=== PATIENT | male | born 1935 | race Caucasian/White ===

== ENCOUNTER → 2018-04-22 | Outpatient (CLI) | payer OTHER, BC ==
[~2018-04-22] MED LIST: ACETAMINOPHEN PO; ANALGESIC325 MG PO; DIOVAN320 MG PO; LASIX 20 MG TAB20 MG PO; NITROQUICK0.4 MG SL; PLAVIX 75 MG TA75 MG PO; POTASSIUM CHLO10 ME1 PO; PREVACID 24HR15 MG PO; PROCARDIA XL90 MG PO; PROSCAR 5MG TABL5 M1 PO; TEKTURNA300 MG PO; TOPROL PO; TRICOR48 MG PO; XANAX 0.5 MG0.5 M1 PO; ZOCOR 20 MG TAB20 M1 PO
--- NOTE | ~2018-04-22 | 2DMMODE ---
[facility] [place] [address] 2 D/M-MODE ECHOCARDIOGRAM Name: NEMO AUSTIN Room #: REG [facility]#: [id number] Admission: 04/22/18 Attend Phys: Jonah David, Discharge: Date of : 31 Date of Service: 04/22/18 1410 Report #: [id number] THIS REPORT FOR: //name// APPROVED REPORT Study performed: 04/22/2018 12:53:44 EXAM: Comprehensive 2D, Doppler, and color-flow Echocardiogram Patient Location: Out-Patient Status: routine BSA: 1.98 HR: 67 bpm BP: 140/70 mmHg Rhythm: NSR Other Information Study Quality: Adequate Indications Edema. Hx: CABG 2D Dimensions RVDd: 35.20 mm IVSd: 11.28 (7-11mm) LVOT Diam: 22.35 (18-24mm) LVDd: 56.07 mm PWd: 10.56 (7-11mm) Ascending Ao: 32.39 (22-36mm) LVDs: 36.90 (25-40mm) Aortic Root: 36.22 mm Volumes Left Atrial Volume (Systole) Single Plane 4CH: 61.74 mL Single Plane 2CH: 89.92 mL LA ESV Index: 41.00 mL/m2 Aortic Valve AoV Peak Jeffery.: 2.27 m/s AO Peak Gr.: 20.55 mmHg LVOT Max P.80 mmHg AO Mean Gr.: 10.39 mmHg AO V2 Mean: 1.54 m/s LVOT Max V: 1.20 m/s AO V2 VTI: 51.24 cm JOANNA Vmax: 2.08 cm2 Mitral Valve E/A Ratio: 0.8 [facility] [place] [address] 2 D/M-MODE ECHOCARDIOGRAM Name: NEMO AUSTIN Room #: [facility]#: [id number] Admission: 04/22/18 Attend Phys: Jonah David, Discharge: Date of : 31 Date of Service: 04/22/18 1410 Report #: [id number] MV Decel. Time: 190.18 ms MV E Max Jeffery.: 1.17 m/s MV A Jeffery.: 1.43 m/s MV PHT: 55.15 ms IVRT: 78.43 ms Pulmonary Valve PV Peak Jeffery.: 1.24 m/s PV Peak Gr.: 6.14 mmHg Pulmonary Vein P Vein S: 0.73 m/s P Vein D: 0.47 m/s P Vein S/D Ratio: 1.55 Tricuspid Valve TR Peak Jeffery.: 2.89 m/s RAP Estimate: 5.00 mmHg TR Peak Gr.: 33.33 mmHg PA Pressure: 38.00 mmHg Left Ventricle The left ventricle is normal size. There is normal LV segmental wall motion. Mild concentric left ventricular hypertrophy. Left ventricular systolic function is normal. LVEF is 55-60%. Mild diastolic dysfunction is present (impaired relaxation pattern). Right Ventricle The right ventricle is normal size. The right ventricular systolic function is normal. Atria Left atrium is dilated. The right atrium size is normal. Aortic Valve Aortic valve is calcified. No aortic regurgitation is present. There is no aortic valvular stenosis. Mitral Valve The mitral valve is normal in structure. Trace to mild mitral regurgitation. Tricuspid Valve The tricuspid valve is normal in structure. Mild tricuspid regurgitation. Estimated PAP is 35-40mmHg. Pulmonic Valve [facility] [address] [place] [address] 2 D/M-MODE ECHOCARDIOGRAM Name: NEMO AUSTIN Room #: REG [facility]#: [id number] Admission: 04/22/18 Attend Phys: Jonah David, Discharge: Date of : 31 Date of Service: 04/22/18 1410 Report #: [id number] Pulmonic valve is not well visualized. Trace pulmonic regurgitation. Great Vessels The aortic root is normal in size. The ascending aorta is normal in size. IVC is normal in size and collapses >50% with inspiration. Pericardium There is no pericardial effusion. <Conclusion> The left ventricle is normal size. Mild concentric left ventricular hypertrophy. Left ventricular systolic function is normal. Mild diastolic dysfunction is present (impaired relaxation pattern). The right ventricle is normal size. Left atrium is dilated. Aortic valve is calcified. There is no aortic valvular stenosis. Trace to mild mitral regurgitation. Mild tricuspid regurgitation. Estimated PAP is 35-40mmHg. <ELECTRONICALLY SIGNED> By: Lewis Valentin MD 04/22/18 1410 [id number] Lewis Valentin MD /INF
== END ==
LOC: CV 12:09 → HYPER 12:09
DX: R60.0 Localized edema (principal); R21 Rash and other nonspecific skin eruption; L30.9 Dermatitis, unspecified; E78.5 Hyperlipidemia, unspecified; I25.10 Atherosclerotic heart disease of native coronary artery without angina pectoris; I12.9 Hypertensive chronic kidney disease with stage 1 through stage 4 chronic kidney disease, or unspecified chronic kidney disease; N18.4 Chronic kidney disease, stage 4 (severe); G47.33 Obstructive sleep apnea (adult) (pediatric); K21.9 Gastro-esophageal reflux disease without esophagitis; Z86.73 Personal history of transient ischemic attack (TIA), and cerebral infarction without residual deficits; Z95.1 Presence of aortocoronary bypass graft

== ENCOUNTER → 2018-04-30 | Outpatient (CLI) | payer OTHER, BC | LOC: HYPER 07:06 | DX: S81.801D Unspecified open wound, right lower leg, subsequent encounter (principal); R60.0 Localized edema; R21 Rash and other nonspecific skin eruption; L30.9 Dermatitis, unspecified; E78.5 Hyperlipidemia, unspecified; I25.10 Atherosclerotic heart disease of native coronary artery without angina pectoris; I10 Essential (primary) hypertension; N18.4 Chronic kidney disease, stage 4 (severe); K21.9 Gastro-esophageal reflux disease without esophagitis; G47.33 Obstructive sleep apnea (adult) (pediatric); Z95.1 Presence of aortocoronary bypass graft; Z86.73 Personal history of transient ischemic attack (TIA), and cerebral infarction without residual deficits; X58.XXXD Exposure to other specified factors, subsequent encounter ==

== ENCOUNTER → 2018-05-09 | Outpatient (CLI) | payer OTHER, BC | LOC: HYPER 07:00 | DX: S81.801D Unspecified open wound, right lower leg, subsequent encounter (principal); S81.802D Unspecified open wound, left lower leg, subsequent encounter; R21 Rash and other nonspecific skin eruption; E78.5 Hyperlipidemia, unspecified; I12.9 Hypertensive chronic kidney disease with stage 1 through stage 4 chronic kidney disease, or unspecified chronic kidney disease; N18.4 Chronic kidney disease, stage 4 (severe); I25.10 Atherosclerotic heart disease of native coronary artery without angina pectoris; G45.9 Transient cerebral ischemic attack, unspecified; G47.33 Obstructive sleep apnea (adult) (pediatric); K21.9 Gastro-esophageal reflux disease without esophagitis; X58.XXXD Exposure to other specified factors, subsequent encounter ==

== ENCOUNTER 2018-11-14 05:16 | Inpatient (IN) | payer OTHER, BC ==
[2018-11-14] VITALS (7 sets, daily range): BP systolic 113–180; BP diastolic 42–89
[~2018-11-14] VITALS: Ht 162.6 cm; Wt 86.2 kg
[2018-11-14 05:55] LABS: EOSINOPHILS 3.4 % (0.0-3.0); HEMATOCRIT 30.3 % (42.0-52.0); HEMOGLOBIN 10.4 gm/dL (14.0-18.0); LYMPHOCYTES 25.6 % (24.0-44.0); MCH 33.4 pg (26.0-34.0); MCHC 34.2 g/dL (28.0-37.0); MCV 97.7 fL (80.0-100.0); MONOCYTES 9.6 % (1.0-8.0); PLATELET COUNT 202 thou/uL (150-400); POLYS 60.4 % (36.0-66.0); RDW 15.3 % (10.5-14.5); WBC 6.6 thou/uL (4.0-11.0)
[2018-11-14] MEDS ORDERED: LASIX 40 MG TAB40 M2 PO (06:00)
[2018-11-14] MEDS ORDERED: TYLENOL EXTRA500 MG PO (06:01)
[2018-11-14] MEDS ORDERED: IRON325 PO (06:02)
[2018-11-14] MEDS ORDERED: VITAMIN D2000 UNIT PO (06:02)
[2018-11-14 06:03] LABS: ANION GAP 9 mmol/L (7-16); BUN 61 mg/dL (7-18); CHLORIDE 107 mmol/L (98-107); CO2 27 mmol/L (21-32); CREATININE 2.6 mg/dL (0.7-1.3); GLUCOSE 110 mg/dL (74-106); POTASSIUM 4.5 mmol/L (3.5-5.1); SODIUM 143 mmol/L (136-145)
[2018-11-14] MEDS ORDERED: ALLOPURINOL 10100 M1 PO (06:04)
[2018-11-14] MEDS ORDERED: HYTRIN 1 MG CAP1 MG (06:04)
[2018-11-14] MEDS ORDERED: ASPIR 8181 MG PO (06:05)
[2018-11-14] MEDS ORDERED: NORVASC5 MG PO (06:06)
[2018-11-14] MEDS ORDERED: ZOCOR20 MG PO (06:06)
[2018-11-14 06:11] LABS: TROPONIN-I <0.06 ng/mL (<0.06)
[2018-11-14 08:02] LABS: CHOLESTEROL 108 mg/dL (<200); HDL CHOLESTEROL 44 mg/dL (>40); LDL CHOLESTEROL 54 mg/dL (<100); TC:HDL 2.5 Ratio (Not establshd); TRIGLYCERIDE 52 mg/dL (<150); VLDL 10 mg/dL (<40)
--- NOTE | 2018-11-14 09:04 | EKG ---
[place] [address] [facility] [employer] [place] [address] ELECTROCARDIOGRAM REPORT Name: MINERVA AUSTINRAZ Pichardo Room #: 354-P ADM IN M.R.#: [id number] ������������������ Admission: 11/14/18 ������������������ Attend Phys: Daniela Dasilva Discharge: ������������������ Date of : 31 Report #: [id number] ����������������������������������������������������������������� [id number] THIS REPORT FOR: //name// 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[employer]: CARLOS : 1935 Requested By: Zeynep Urena Order Number: [id number] MD: Tae Juarez Measurements Intervals [place] Rate: 45 P: 49 MT: 162 QRS: -26 QRSD: 100 T: 68 QT: 488 QTc: 423 Interpretive Statements Sinus bradycardia Borderline left axis deviation Compared to ECG 09/03/2009 07:02:55 Nonspecific T wave abnormality no longer present sinus bradycardia is now present Electronically Signed On 11-14-2018 9:04:22 CDT by Tae Juarez [email or web address] ��������������������������������������������� <ELECTRONICALLY SIGNED> ���������������������������������������� By: Tae Juarez MD, [facility] ��������������������������������������������� 11/14/18 0904 0535 0535 Tae Juarez MD, [facility] /EPI
--- NOTE | 2018-11-14 11:20 | 2DMMODE ---
[facility] [place] [address] 2 D/M-MODE ECHOCARDIOGRAM Name: NEMO AUSTIN Room #: 354-P ADM IN M.R.#: [id number] ������������� Admission: 11/14/18 ������������� Attend Phys: Daniela Ghotra Discharge: ��� ������������� ��� Date of : 31 Date of Service: 11/14/18 1120 �� Report #: [id number] �������� ��������������������������������������������[id number] THIS REPORT FOR: //name// APPROVED REPORT Study performed: 11/14/2018 10:13:21 EXAM: Comprehensive 2D, Doppler, and color-flow Echocardiogram Patient Location: Bedside Room #: 354 Status: routine BSA: 1.91 HR: 49 bpm BP: 180/89 mmHg Rhythm: Bradycardia Other Information Study Quality: Adequate Risk Factors: Cardiac Risk Factors: HTN, Hyperlipidemia Indications Chest Pain S/P CABG x4 (2000) 2D Dimensions IVSd: 11.74 (7-11mm) LVOT Diam: 22.00 (18-24mm) LVDd: 43.26 mm PWd: 13.22 (7-11mm) Ascending Ao: 29.71 (22-36mm) LVDs: 31.33 (25-40mm) Aortic Root: 33.84 mm LV Single Plane 4CH: 60.80 % LV Single Plane 2CH: 60.28 % Biplane EF: 61.0 % Volumes Left Atrial Volume (Systole) Single Plane 4CH: 60.12 mL Single Plane 2CH: 49.76 mL LA ESV Index: 31.00 mL/m2 Aortic Valve AoV Peak Jeffery.: 1.65 m/s AO Peak Gr.: 10.94 mmHg LVOT Max P.98 mmHg LVOT Max V: 1.00 m/s [facility] [place] [place] [address] 2 D/M-MODE ECHOCARDIOGRAM Name: NEMO AUSTIN Room #: 354-P [facility] IN [facility].#: [id number] ������������� Admission: 11/14/18 ������������� Attend Phys: Daniela Ghotra Discharge: ��� ������������� ��� Date of : 31 Date of Service: 11/14/18 1120 �� Report #: [id number] �������� ��������������������������������������������[id number] JOANNA Vmax: 2.24 cm2 Mitral Valve E/A Ratio: 0.8 MV Decel. Time: 409.00 ms MV E Max Jeffery.: 1.07 m/s MV A Jeffery.: 1.41 m/s MV PHT: 118.61 ms IVRT: 78.43 ms TDI E/Lateral E': 10.70 E/Medial E': 17.83 Medial E' Jeffery.: 0.06 m/s Lateral E' Jeffery.: 0.10 m/s Pulmonary Valve PV Peak Jeffery.: 1.10 m/s PV Peak Gr.: 4.86 mmHg NC End Vmax: 1.08 m/s Pulmonary Vein P Vein S: 1.00 m/s P Vein A: 0.26 m/s P Vein D: 0.45 m/s P Vein A Dur.: 120.0 msec P Vein S/D Ratio: 2.22 Tricuspid Valve TR Peak Jeffery.: 2.76 m/s TR Peak Gr.: 30.43 mmHg Left Ventricle The left ventricle is normal size. There is normal LV segmental wall motion. Mild concentric left ventricular hypertrophy. Left ventricular systolic function is normal. The left ventricular ejection fraction is within the normal range. LVEF is 60%. Mild diastolic dysfunction is present (impaired relaxation pattern). Right Ventricle The right ventricle is normal size. The right ventricular systolic function is normal. Atria Left atrium is mildly dilated. The right atrium size is normal. Aortic Valve Aortic valve is calcified. No aortic regurgitation is present. There [address] [place] [address] 2 D/M-MODE ECHOCARDIOGRAM Name: NEMO AUSTIN Marino Room #: 354-P [facility] IN [facility]#: [id number] ������������� Admission: 11/14/18 ������������� Attend Phys: Daniela Ghotra Discharge: ��� ������������� ��� Date of : 31 Date of Service: 11/14/18 1120 �� Report #: [id number] �������� ��������������������������������������������[id number] is no aortic valvular stenosis. Mitral Valve The mitral valve is normal in structure. Trace mitral regurgitation. No evidence of mitral valve stenosis. Tricuspid Valve The tricuspid valve is normal in structure. Trace tricuspid regurgitation. TR jet measures 30 mmHg. Pulmonic Valve The pulmonary valve is normal in structure. There is no pulmonic valvular regurgitation. Great Vessels The aortic root is normal in size. The ascending aorta is normal in size. IVC is not well visualized. Pericardium There is no pericardial effusion. <Conclusion> The left ventricle is normal size. Mild concentric left ventricular hypertrophy. Left ventricular systolic function is normal. Mild diastolic dysfunction is present (impaired relaxation pattern). The right ventricle is normal size. Left atrium is mildly dilated. The right atrium size is normal. Aortic valve is calcified. Trace mitral regurgitation. Trace tricuspid regurgitation. TR jet measures 30 mmHg. ��������������������������������������������� <ELECTRONICALLY SIGNED> ���������������������������������������� By: Lewis Valentin MD ��������������������������������������������� 11/14/18 1120 1120 112 Lewis Valentin MD /INF
--- NOTE | 2018-11-14 16:41 | NUR ---
0830 ADMISSION NOTE: PT ARRIVES TO FLOOR ALERT AND ORIENTED X4, NO CHEST PAIN AT THIS TIME, ALL BELONGINGS DOCUMENTED, AT BEDSIDE, ORDERS ACKNOWLEDGED AND NEW CONSULTS CALLED. EXPLAINED TO PT AND PLAN OF CARE AND GOALS OF CARE. NO NEW QUESTIONS AT THIS TIME.
--- NOTE | 2018-11-14 17:05 | NUR ---
NO CHEST PAIN THROUGOUT DAY, STRESS TEST COMPLETED, NO QUESTIONS ABOUT TESTING; RESULTS WERE REVIEWED WITH PT BY DR. VINES. PT ALERT AND ORIENTED X4, PLEASANT MOOD, VITAL SIGNS STABLE, PT HAS NO CONCERNS AT THIS TIME. WILL CONTINUE TO MONITOR.
[2018-11-14 19:20] LABS: PROT/CREAT RATIO 2.7; URINE CREATININE-RANDOM* 57.4 mg/dL; URINE PROTEIN-RANDOM* 156.1 mg/dL (<11.9)
--- NOTE | 2018-11-15 04:43 | NUR ---
ASSUMED CARE AT START OF SHIFT PT UP TO BATHROOM GAIT STEADY WITH STANDBY ASSIST, PT DENIES PAIN WITH ACTIVITY, RESIDENTIAL REMODELING SUBCONTRACTOR SHOWS NSR -SB WHILE SLEEPING, CELI CONITNUE WITH CURRENT PLAN OF CARE .
[2018-11-15 05:26] LABS: ABSOLUTE NEUTROPHILS 4.1 thou/uL (1.4-8.2); BASOPHILS 0.4 % (0.0-2.0); EOSINOPHILS 3.2 % (0.0-3.0); HEMATOCRIT 29.6 % (42.0-52.0); HEMOGLOBIN 9.9 gm/dL (14.0-18.0); LYMPHOCYTES 21.4 % (24.0-44.0); MCH 32.5 pg (26.0-34.0); MCHC 33.3 g/dL (28.0-37.0); MCV 97.6 fL (80.0-100.0); MONOCYTES 9.8 % (1.0-8.0); PLATELET COUNT 194 thou/uL (150-400); POLYS 65.2 % (36.0-66.0); RBC 3.03 mil/uL (4.50-6.00); RDW 15.2 % (10.5-14.5); WBC 6.3 thou/uL (4.0-11.0)
[2018-11-15 05:41] LABS: ALBUMIN 2.8 g/dL (3.4-5.0); CALCIUM 8.4 mg/dL (8.5-10.1); CREATININE 2.3 mg/dL (0.7-1.3); MAGNESIUM 2.2 mg/dL (1.8-2.4); PHOSPHORUS 3.2 mg/dL (2.5-4.9); POTASSIUM 4.6 mmol/L (3.5-5.1)
[2018-11-15 05:53] VITALS: BP 151/64
[2018-11-15 07:22] VITALS: BP 168/82
[2018-11-15] MEDS ORDERED: IMDUR 30 MG TAB30 M1 PO (09:51)
[2018-11-15 10:15] VITALS: BP 168/82
--- NOTE | 2018-11-15 11:11 | NUR ---
IV AND TELE DISCONTINUED. PT UNDERSTANDS ALL FOLLOW UP ORDERS. DISCHARGE PT TO HOME VIA PRIVATE VEHICLE.
--- NOTE | 2018-11-15 12:07 | HC ---
[facility] [place] [address] CONSULTATION Name: NEMO AUSTNI Room #: 354-P [facility] IN M.R.#: [id number] Admission: 11/14/18 ������������������ Attend Phys: Daniela Dasilva Discharge: 11/15/18 ������������������ Date of : 31 Report #: [id number] THIS REPORT FOR: //name// CC: Daniela Valentin Angelique Johnson DATE OF SERVICE: 11/14/2018 ATTENDING PHYSICIAN: Daniela Dasilva MD. REASON FOR CONSULTATION: Chronic kidney disease. HISTORY OF PRESENT ILLNESS: The patient has longstanding chronic kidney disease, unknown etiology, followed by Dr. Teran for several years, presented with chest pain. Has a creatinine of 2.6 and BUN of 61, which he thinks is more or less close to his usual baseline. He has hypertension, does not have diabetes, has had some difficulty with urinary retention and BPH and this is being treated. PAST MEDICAL HISTORY: Coronary artery bypass in 2000, hypertension, history of remote CVA and rotator cuff repair, history of appendectomy, occasional leg swelling. FAMILY HISTORY: Negative for renal disease or diabetes. SOCIAL HISTORY: No cigarettes or alcohol. Lives at home with his . REVIEW OF SYSTEMS: GENERAL: He has been feeling reasonably well. EYES: His vision is fine. ENT: Hearing okay, swallows okay. No mouth ulcers. ENDOCRINE: Negative for diabetes. RESPIRATORY: Gets somewhat short of breath with exertion. CARDIAC: He has had the recent chest pain, which required admission. GASTROINTESTINAL: No nausea, vomiting, diarrhea or bloody stools. GENITOURINARY: Does say he has a pretty good urinary stream without hematuria or renal stone disease. NEUROLOGIC: No seizure, syncope, stroke or evidence of neuropathy. PHYSICAL EXAMINATION: GENERAL: This is a well-appearing gentleman, in no distress. SKIN: Shows no lesions. SKELETAL: Well developed, well nourished. No joint deformities. HEENT: Extraocular movements are full. No scleral icterus. Hearing and vision intact. Mucous membranes moist. Tongue, buccal mucosa benign. [facility] [address] [place] [address] CONSULTATION Name: NEMO AUSTIN Marino Room #: 354-P [facility] IN M.R.#: [id number] Admission: 11/14/18 ������������������ Attend Phys: Daniela Costello Brown Discharge: 11/15/18 ������������������ Date of : 31 Report #: [id number] NECK: Supple, no carotid bruits or lymphadenopathy. CHEST: Clear to auscultation. HEART: Regular rate and rhythm without murmurs, gallops, or rubs. ABDOMEN: Soft, nontender. No bruits, masses or organomegaly. EXTREMITIES: Show the left leg is very slightly swollen and peripheral pulses are intact. LABORATORY DATA: Hemoglobin 10.4. Sodium 143, potassium 4.5, chloride 107, bicarbonate 27, creatinine 2.6, BUN 61. ASSESSMENT AND PLAN: 1. Chronic kidney disease. The patient has chronic kidney disease followed for many years by Dr. Vats on a program which does include antihypertensives and medications for benign prostatic hypertrophy. For completeness, I will check renal sonography and urine protein studies. At this point, I do not really feel like he needs the IV fluids that he is getting here, which may throw him into heart failure, needlessly given his compromised renal function. At this point, it is unlikely he will be getting a heart cath. 2. Chest pain. 3. History of benign prostatic hypertrophy. 4. History of coronary artery bypass. ��������������������������������������������� <ELECTRONICALLY SIGNED> ���������������������������������������� By: Marco Baker MD ��������������������������������������������� 11/15/18 1207 1039 0026 Marco Baker MD /nt
== END 2018-11-15 11:07 | disposition home or self-care (01) | DRG 206 ==
LOC: ER 05:16 → 3W 06:35 → EROBS 06:35 → 3W 07:50 → ENTRNSPT 11-15 10:41 → 3W 11-15 11:07
PROVIDERS: Emergency Medicine; Internal Medicine Nephrology; Nurse Practitioner; ADMIT Hospitalist
DX: M94.0 Chondrocostal junction syndrome [Tietze] (principal); N17.9 Acute kidney failure, unspecified; F41.9 Anxiety disorder, unspecified; E78.00 Pure hypercholesterolemia, unspecified; N40.0 Benign prostatic hyperplasia without lower urinary tract symptoms; N18.9 Chronic kidney disease, unspecified; E78.5 Hyperlipidemia, unspecified; I25.10 Atherosclerotic heart disease of native coronary artery without angina pectoris; R00.1 Bradycardia, unspecified; E86.0 Dehydration; I12.9 Hypertensive chronic kidney disease with stage 1 through stage 4 chronic kidney disease, or unspecified chronic kidney disease; D63.8 Anemia in other chronic diseases classified elsewhere; M19.90 Unspecified osteoarthritis, unspecified site; G47.33 Obstructive sleep apnea (adult) (pediatric); Z98.49 Cataract extraction status, unspecified eye; Z90.49 Acquired absence of other specified parts of digestive tract; Z95.1 Presence of aortocoronary bypass graft; Z88.1 Allergy status to other antibiotic agents; Z86.73 Personal history of transient ischemic attack (TIA), and cerebral infarction without residual deficits; Z79.82 Long term (current) use of aspirin; Z79.899 Other long term (current) drug therapy; Z82.49 Family history of ischemic heart disease and other diseases of the circulatory system
CPT/HCPCS: 10879

== ENCOUNTER → 2019-09-30 | Outpatient (CLI) | payer MEDICARE ==
[~2019-09-30] MED LIST changes: +ALLOPURINOL 10100 M1 PO; +ASPIR 8181 MG PO; +HYTRIN 1 MG CAP1 MG; +IMDUR 30 MG TAB30 M1 PO; +IRON325 PO; +LASIX 40 MG TAB40 M2 PO; +NORVASC5 MG PO; +TYLENOL EXTRA500 MG PO; +VITAMIN D2000 UNIT PO; +ZOCOR20 MG PO
== END ==
LOC: SJCVC 13:16
DX: I25.10 Atherosclerotic heart disease of native coronary artery without angina pectoris (principal); I12.9 Hypertensive chronic kidney disease with stage 1 through stage 4 chronic kidney disease, or unspecified chronic kidney disease; N18.3 Chronic kidney disease, stage 3 (moderate); K21.9 Gastro-esophageal reflux disease without esophagitis; E78.00 Pure hypercholesterolemia, unspecified

== ENCOUNTER → 2019-10-06 | Outpatient (CLI) | payer MEDICARE | LOC: SJCVC 15:09 | DX: I25.810 Atherosclerosis of coronary artery bypass graft(s) without angina pectoris (principal); I12.9 Hypertensive chronic kidney disease with stage 1 through stage 4 chronic kidney disease, or unspecified chronic kidney disease; N18.3 Chronic kidney disease, stage 3 (moderate); E78.00 Pure hypercholesterolemia, unspecified; K21.9 Gastro-esophageal reflux disease without esophagitis; E78.5 Hyperlipidemia, unspecified; Z79.82 Long term (current) use of aspirin; Z79.899 Other long term (current) drug therapy; Z95.1 Presence of aortocoronary bypass graft; Z82.49 Family history of ischemic heart disease and other diseases of the circulatory system ==

== ENCOUNTER → 2019-10-06 | Outpatient (CLI) | payer BC ==
--- NOTE | 2019-10-06 15:23 | 2DMMODE ---
[facility] [place] [address] 2 D/M-MODE ECHOCARDIOGRAM Name: NEMO AUSTIN [id number] Admission: 10/06/19 Attend Phys: Lewis Valentin MD Discharge: Date of : 31 Report #: [id number] THIS REPORT FOR: cc: Angelique Johnson MD,Angelique Juarez,Tae Alexander MD [facility] ~ APPROVED REPORT Study performed: 10/06/2019 13:13:57 EXAM: Comprehensive 2D, Doppler, and color-flow Echocardiogram Patient Location: Out-Patient Status: routine BSA: 1.91 HR: 87 bpm BP: 150/90 mmHg Rhythm: NSR/Arrhythmia Indications Chest Pain Hx: CABG, HTN, HLP. 2D Dimensions RVDd: 37.00 mm IVSd: 12.00 (7-11mm) LVOT Diam: 21.00 (18-24mm) LVDd: 50.00 mm PWd: 12.00 (7-11mm) Ascending Ao: 31.55 (22-36mm) LVDs: 37.00 (25-40mm) Aortic Root: 33.00 mm Volumes Left Atrial Volume (Systole) Single Plane 4CH: 57.82 mL Single Plane 2CH: 86.19 mL LA ESV Index: 38.00 mL/m2 Aortic Valve AoV Peak Jeffery.: 1.82 m/s AO Peak Gr.: 13.23 mmHg LVOT Max P.68 mmHg LVOT Max V: 1.19 m/s JOANNA Vmax: 2.18 cm2 Mitral Valve E/A Ratio: 0.8 [facility] [place] [address] 2 D/M-MODE ECHOCARDIOGRAM Name: NEMO AUSTIN Room #: REG [facility]#: [id number] Admission: 10/06/19 Attend Phys: Lewis Valentin MD Discharge: Date of : 31 Report #: [id number] MV Decel. Time: 274.22 ms MV E Max Jeffery.: 1.10 m/s MV A Jeffery.: 1.34 m/s MV PHT: 79.52 ms IVRT: 69.20 ms Pulmonary Valve PV Peak Jeffery.: 1.30 m/s PV Peak Gr.: 6.77 mmHg Pulmonary Vein P Vein S: 0.84 m/s P Vein A: 0.31 m/s P Vein D: 0.51 m/s P Vein A Dur.: 129.2 msec P Vein S/D Ratio: 1.65 Tricuspid Valve TR Peak Jeffery.: 2.46 m/s RAP Estimate: 5.00 mmHg TR Peak Gr.: 24.14 mmHg PA Pressure: 29.00 mmHg Left Ventricle The left ventricle is normal size. There is normal LV segmental wall motion. Mild concentric left ventricular hypertrophy. Left ventricular systolic function is normal. LVEF is 60-65%. Mild diastolic dysfunction Right Ventricle The right ventricle is normal size. The right ventricular systolic function is normal. Atria Left atrium is mildly dilated. Lipomatous hypertrophy of the atrial septum The right atrium size is normal. Aortic Valve The aortic valve is mildly calcfied. No aortic regurgitation is present. There is no aortic valvular stenosis. Mitral Valve The mitral valve is normal in structure. Trace mitral regurgitation. Tricuspid Valve The tricuspid valve is normal in structure. Trace tricuspid regurgitation. Estimated PAP is 30mmHg. Pulmonic Valve [facility] [place] [address] 2 D/M-MODE ECHOCARDIOGRAM Name: NEMO AUSTIN Marino Room #: REG [facility]#: [id number] Admission: 10/06/19 Attend Phys: Lewis Valentin MD Discharge: Date of : 31 Report #: [id number] Pulmonic valve is not well visualized. There is no pulmonic valvular regurgitation noted. Great Vessels The aortic root is normal in size. The ascending aorta is normal in size. IVC is normal in size and collapses >50% with inspiration. Pericardium There is no pericardial effusion. <Conclusion> Left ventricular systolic function is normal. There is normal LV segmental wall motion. LVEF is 60-65%. Mild diastolic dysfunction Lipomatous hypertrophy of the atrial septum Left atrium is mildly dilated. The aortic valve is mildly calcfied. No aortic regurgitation or stenosis. The mitral valve is normal in structure. Trace mitral regurgitation. Trace tricuspid regurgitation. Estimated pulmonary artery pressure of 30mmHg. There is no pericardial effusion. <ELECTRONICALLY SIGNED> By: Tae Juarez MD, FACC 10/06/19 1522 [id number] Tae Juarez MD, FAC /INF
== END ==
LOC: CV 13:58
DX: I35.8 Other nonrheumatic aortic valve disorders (principal); I10 Essential (primary) hypertension

== ENCOUNTER → 2020-05-20 | Outpatient (CLI) | payer MEDICARE | LOC: SJCVC 10:11 | PROVIDERS: ATTEND Internal Medicine Cardiovascular Disease | DX: R94.31 Abnormal electrocardiogram [ECG] [EKG] (principal); I25.10 Atherosclerotic heart disease of native coronary artery without angina pectoris; I10 Essential (primary) hypertension; E78.00 Pure hypercholesterolemia, unspecified; R60.9 Edema, unspecified ==

== ENCOUNTER → 2020-11-25 | Outpatient (CLI) | payer MEDICARE | LOC: SJCVCIMAG 11-18 07:33 | PROVIDERS: ATTEND Internal Medicine Cardiovascular Disease | DX: I25.10 Atherosclerotic heart disease of native coronary artery without angina pectoris (principal); R00.1 Bradycardia, unspecified; I12.9 Hypertensive chronic kidney disease with stage 1 through stage 4 chronic kidney disease, or unspecified chronic kidney disease; N18.30 Chronic kidney disease, stage 3 unspecified; E78.00 Pure hypercholesterolemia, unspecified; R60.9 Edema, unspecified; E78.5 Hyperlipidemia, unspecified; G47.33 Obstructive sleep apnea (adult) (pediatric); Z88.0 Allergy status to penicillin; Z88.2 Allergy status to sulfonamides; Z88.8 Allergy status to other drugs, medicaments and biological substances; Z95.1 Presence of aortocoronary bypass graft; Z90.49 Acquired absence of other specified parts of digestive tract; Z98.890 Other specified postprocedural states; Z79.82 Long term (current) use of aspirin; Z79.899 Other long term (current) drug therapy; Z86.73 Personal history of transient ischemic attack (TIA), and cerebral infarction without residual deficits; Z82.49 Family history of ischemic heart disease and other diseases of the circulatory system ==

== ENCOUNTER → 2021-05-25 | Outpatient (CLI) | payer MEDICARE | LOC: SJCVC 11:09 | PROVIDERS: ATTEND Internal Medicine Cardiovascular Disease | DX: I49.1 Atrial premature depolarization (principal); R94.31 Abnormal electrocardiogram [ECG] [EKG]; I25.10 Atherosclerotic heart disease of native coronary artery without angina pectoris; I12.9 Hypertensive chronic kidney disease with stage 1 through stage 4 chronic kidney disease, or unspecified chronic kidney disease; N18.30 Chronic kidney disease, stage 3 unspecified; E78.00 Pure hypercholesterolemia, unspecified; Z95.1 Presence of aortocoronary bypass graft; E78.5 Hyperlipidemia, unspecified; G47.33 Obstructive sleep apnea (adult) (pediatric); Z90.49 Acquired absence of other specified parts of digestive tract; Z98.890 Other specified postprocedural states; Z79.82 Long term (current) use of aspirin; Z79.899 Other long term (current) drug therapy; Z88.0 Allergy status to penicillin; Z88.1 Allergy status to other antibiotic agents; Z88.2 Allergy status to sulfonamides; Z88.8 Allergy status to other drugs, medicaments and biological substances ==